=== PATIENT | male | born 1955 | race Hispanic/Latino ===

== ENCOUNTER → 2022-06-25 | Outpatient (CLI) | payer MEDICARE ==
[~2022-06-25] MED LIST: ACET-2079 PO; ACET-2893 PO; BUPROPION PO; CEFA2VIA3 IJ; FOLI0.8T3 PO; LACT10SO9 PO; NICO-704 TD; ONDA-104 PO; PANT40TA54 PO
== END | disposition home or self-care (01) ==
LOC: RAH 09:51
PROVIDERS: ATTEND Urology
DX: N20.0 Calculus of kidney (principal)
CPT/HCPCS: 74018; 76100

== ENCOUNTER → 2022-07-24 | Outpatient (CLI) | payer MEDICARE | END | disposition home or self-care (01) | LOC: RAH 16:14 | PROVIDERS: ATTEND Urology | DX: N20.0 Calculus of kidney (principal) | CPT/HCPCS: 74018 ==

== ENCOUNTER → 2022-08-23 | Outpatient (CLI) | payer MEDICARE | END | disposition home or self-care (01) | LOC: RAH 15:06 | PROVIDERS: ATTEND Urology | DX: N20.0 Calculus of kidney (principal) | CPT/HCPCS: 74018; 76100 ==

== ENCOUNTER 2022-10-22 15:30 | Inpatient (IN) | payer OTHER ==
[~2022-10-22 15:30] MED LIST changes: -ACET-2079 PO; -ACET-2893 PO; -BUPROPION PO; -CEFA2VIA3 IJ; -FOLI0.8T3 PO; -LACT10SO9 PO; -NICO-704 TD; -ONDA-104 PO; -PANT40TA54 PO; +ZOLP5TAB2 PO
[2022-10-22] MEDS: MORPHINE 2 MG SYG IVP PRN ×2 (18:00→20:44)
[2022-10-22] MEDS: LORAZEPAM 2 MG/ML 1 ML VIAL IM PRN ×2 (18:02→20:45)
[2022-10-22] MEDS ORDERED: MORPHINE 2 MG SYG IVP PRN (18:30)
[2022-10-22] MEDS ORDERED: BISACODYL 10 MG SUPP.RECT RC PRN (18:30)
[2022-10-22] MEDS ORDERED: ACETAMINOPHEN 650 MG SUPPOSITORY RC PRN (18:30)
[2022-10-22] MEDS ORDERED: GLYCOPYRROLATE 1 MG/5 ML SYRINGE IV PRN (18:30)
[2022-10-22 20:00] VITALS: BP 98/45
[2022-10-23] MEDS: MORPHINE 2 MG SYG IVP PRN ×4 (02:30→18:19)
[2022-10-23] MEDS: LORAZEPAM 2 MG/ML 1 ML VIAL IM PRN (02:30)
[2022-10-23] MEDS ORDERED: ONDANSETRON 4MG INJ IV PRN (07:00)
[2022-10-23 08:00] VITALS: BP 122/39
[2022-10-23] MEDS ORDERED: MORPHINE 4 MG SYG IVP PRN (09:00)
[2022-10-23] MEDS: LORAZEPAM 2 MG/ML 1 ML VIAL IVP PRN ×3 (12:16→18:19)
[2022-10-23 16:00] VITALS: BP 101/62
[2022-10-23 19:49] VITALS: BP 104/53
[2022-10-24] MEDS: LORAZEPAM 2 MG/ML 1 ML VIAL IVP PRN ×5 (03:11→18:11)
[2022-10-24] MEDS: MORPHINE 2 MG SYG IVP PRN ×5 (03:48→18:11)
[2022-10-24 07:30] VITALS: BP 114/52
[2022-10-24 20:06] VITALS: BP 119/59
[2022-10-24] MEDS: GLYCOPYRROLATE 1 MG/5 ML SYRINGE IV SCH (20:07)
[2022-10-25 07:30] VITALS: BP 131/56
[2022-10-25] MEDS: GLYCOPYRROLATE 1 MG/5 ML SYRINGE IV SCH ×2 (08:54→20:48)
[2022-10-25] MEDS: LORAZEPAM 2 MG/ML 1 ML VIAL IVP PRN (10:59)
[2022-10-25 20:09] VITALS: BP 81/51
[2022-10-26 01:24] VITALS: BP 0/0
== END 2022-10-26 03:50 | DRG 871 ==
LOC: 3CH 15:30
PROVIDERS: ADMIT Internal Medicine; ATTEND Internal Medicine
DX: A41.9 Sepsis, unspecified organism (principal); E43 Unspecified severe protein-calorie malnutrition; J96.01 Acute respiratory failure with hypoxia; N17.0 Acute kidney failure with tubular necrosis; N39.0 Urinary tract infection, site not specified; C22.9 Malignant neoplasm of liver, not specified as primary or secondary; D61.818 Other pancytopenia; E87.70 Fluid overload, unspecified; D70.9 Neutropenia, unspecified; F41.9 Anxiety disorder, unspecified; K74.60 Unspecified cirrhosis of liver; I48.91 Unspecified atrial fibrillation; R62.7 Adult failure to thrive; Z66 Do not resuscitate; Z82.49 Family history of ischemic heart disease and other diseases of the circulatory system; Z83.3 Family history of diabetes mellitus; Z85.05 Personal history of malignant neoplasm of liver; Z87.891 Personal history of nicotine dependence
CPT/HCPCS: G0378; J2060; J3490